=== PATIENT | female | born 1995 | race Asian ===

== ENCOUNTER 2017-11-25 17:46 | Emergency (ER) | payer OTHER ==
--- NOTE | 2017-11-25 18:20 | EDPHY ---
H & P Time Seen by Provider: 11/25/17 18:15 HPI/ROS: CHIEF COMPLAINT: "My eyes were puffy" HISTORY OF PRESENT ILLNESS: 22-year-old female contact lens where, currently wearing her glasses, awoke with periorbital edema which has progressively decreased out today with oral Benadryl. She also notes antecedent rhinorrhea, ear fullness. No sore throat. No cough. No fever or chills. No pain with extraocular movements. No exposure to high speed projectiles. No crusting or discharge. No periorbital erythema REVIEW OF SYSTEMS: A ten point review of systems was performed and is negative with the exception of the items mentioned in the HPI PAST MEDICAL & SURGICAL HISTORY: contact lens wear, currently wearing glasses SOCIAL HISTORY: Nonsmoker PHYSICAL EXAM (Prior to examination, patient consented to physical exam, hands were washed and my usual and customary physical exam procedures followed) 1) GENERAL: Well-developed, well-nourished, alert and oriented. Appears to be in no acute distress. 2) HEAD: Normocephalic, atraumatic 3) HEENT: OS 20/50, OD 20/40, OU 20/40 ( with corrective glasses in place) Pupils equal, round, reactive to light bilaterally. Sclera anicteric. Mild periorbital edema which is significantly decreased compared to the photo she took over self this morning. There is no periorbital crepitus, no erythema, no induration, no pain with extraocular movements, no proptosis, no conjunctival injection. Nasopharynx: Positive rhinorrhea, oropharynx, clear, no lesions. No tonsillar enlargement or exudate bilateral ears show no signs of otitis media or externa however clear effusion is noted in the middle ear. 4) NECK: Full range of motion, no meningeal signs. 5) LUNGS: Clear auscultation bilaterally, no wheezes, no rhonchi, no retractions. 6) HEART: Regular rate and rhythm, no murmur, no heave, no gallop. 7) ABDOMEN: No guarding, no rebound, no focal tenderness n, 8) MUSCULOSKELETAL: No peripheral edema or discoloration. 9) BACK: , no visual or palpable abnormality. 10) SKIN: No rash, no petechiae. 11) Psychiatric: Patient is oriented X 3, there is no agitation. DIFFERENTIAL DIAGNOSIS: In no particular include but limited to allergic conjunctivitis, rhinosinusitis, orbital cellulitis, periorbital cellulitis, infectious conjunctivitis Smoking Status: Current some day smoker Constitutional: Initial Vital Signs Temperature (C) 37 C 11/25/17 17:50 Heart Rate 90 11/25/17 17:50 Respiratory Rate 16 11/25/17 17:50 Blood Pressure 117/82 H 11/25/17 17:50 O2 Sat (%) 97 11/25/17 17:50 O2 Delivery Mode Room Air Allergies/Adverse Reactions: No Known Allergies Allergy (Unverified 11/25/17 17:49) Home Medications: Medication Instructions Recorded Albuterol [Ventolin Hfa Inhaler] 2 puffs IH Q4 PRN #0 mdi 10/24/15 Zolpidem Tartrate [Ambien 5MG (*)] 5 mg PO HS PRN #30 tab 10/24/15 buPROPion XL [Wellbutrin 150mg XL] 150 mg PO DAILY #30 tab 10/24/15 Paxil 11/25/17 diphenhydrAMINE [Benadryl 25 MG 25 mg PO Q6 #15 tab 11/25/17 (*)] MDM/Departure - MDM ED Course/Re-evaluation: I think the patient's symptoms are more likely secondary to allergic conjunctivitis and environmental allergies. Doubt infectious conjunctivitis. Doubt periorbital or orbital cellulitis. We discussed supportive care I have written prescriptions for supportive care. She is noted to have bilateral effusion with no signs of infection. Recommended pseudoephedrine. Usual and customary discharge precautions instructions provided. She feels comfortable being discharged. I saw this patient independently based on established practice protocols. Care of patient under supervision of secondary supervising physician Dr Madison - Depart Disposition: Home, Routine, Self-Care Clinical Impression: Allergic conjunctivitis and rhinitis Qualifiers: Laterality: bilateral Qualified Code(s): H10.13 - Acute atopic conjunctivitis, bilateral; J30.9 - Allergic rhinitis, unspecified; J30.9 - Allergic rhinitis, unspecified Condition: Good Instructions: Conjunctivitis (ED) Additional Instructions: Return to the ER if you develop eye pain, light sensitivity, or any other symptoms that concern you. Recommend you continue taking Benadryl, recommend also [id number] allergy relief drops such as [place] Prescriptions: diphenhydrAMINE [Benadryl 25 MG (*)] 25 mg PO Q6 #15 tab Referrals: [facility] Arreguin,. [Clinic] - 2-3 days, call for appt.
[2017-11-25 18:53] VITALS: BP 120/80
== END 2017-11-25 18:52 | disposition home or self-care (01) ==
DX: H10.13 Acute atopic conjunctivitis, bilateral (principal); J30.9 Allergic rhinitis, unspecified; F17.200 Nicotine dependence, unspecified, uncomplicated